=== PATIENT | male | born 1960 | race Caucasian/White ===

== ENCOUNTER 2016-12-16 12:31 | Inpatient (IN) | payer MEDICAID, OTHER ==
[2016-12-16 13:17] LABS: ABSOLUTE LYMPHOCYTES (AUTO) 0.2 10^3/uL (0.5-4.7); ABSOLUTE MONOCYTES (AUTO) 0.3 10^3/uL (0.1-1.4); ABSOLUTE NEUT (AUTO) 1.9 10^3/uL (1.7-8.2); BASOPHILS % (AUTO) 0.5 % (0-2); EOSINOPHILS % (AUTO) 0.4 % (0-6); HEMATOCRIT 29.3 % (37.9-51.0); HGB HCT DIFFERENCE 0.7; LYMPHOCYTES % (AUTO) 7.9 % (13-45); MEAN CORPUSCULAR HEMOGLOBIN 29.3 pg (27.0-33.4); MEAN CORPUSCULAR VOLUME 86 fl (80-97); MONOCYTES % (AUTO) 11.2 % (3-13); RED BLOOD COUNT 3.39 10^6/uL (4.35-5.55); RED CELL DISTRIBUTION WIDTH 14.9 % (11.5-14.0); WHITE BLOOD COUNT 2.4 10^3/uL (4.0-10.5)
[2016-12-16 13:39] LABS: ALANINE AMINOTRANSFERASE 48 U/L (21-72); ALBUMIN 3.8 g/dL (3.5-5.0); ALKALINE PHOSPHATASE 144 U/L (38-126); ANION GAP 16 (5-19); ASPARTATE AMINO TRANSFERASE 103 U/L (17-59); BILIRUBIN,DIRECT 0.9 mg/dL (0.0-0.4); BILIRUBIN,TOTAL 2.1 mg/dL (0.2-1.3); BLOOD UREA NITROGEN 17 mg/dL (7-20); CALCIUM 9.4 mg/dL (8.4-10.2); CARBON DIOXIDE 23 mmol/L (22-30); CHLORIDE 100 mmol/L (98-107); CREATININE RESULT 0.95 mg/dL (0.52-1.25); GLUCOSE 150 mg/dL (75-110); LIPASE 667.2 U/L (23-300); POTASSIUM 4.5 mmol/L (3.6-5.0); SODIUM 138.7 mmol/L (137-145); TOTAL PROTEIN 7.3 g/dL (6.3-8.2)
[2016-12-16 13:43] LABS: OVALOCYTES 2+; POIKILOCYTOSIS 2+; POLYCHROMASIA SLIGHT
[2016-12-16] MEDS ORDERED: PANTOPRAZOLE SODIUM 40 MG VIAL IV ONE (13:44)
[2016-12-16] MEDS ORDERED: OCTREOTIDE ACETATE INJ/PF 100 MCG/1 ML SDV IV ONE (13:45)
[2016-12-16] MEDS ORDERED: NORMAL SALINE 500 ML with OCTREOTIDE ACETATE 500 MCG IV PRN ×2 (13:45)
[2016-12-16] MEDS ORDERED: PANTOPRAZOLE SODIUM 40 MG VIAL IV PRN (13:49)
[2016-12-16 14:46] LABS: PROTHROMBIN TIME 16.7 SEC (11.4-15.4)
[2016-12-16] MEDS: NORMAL SALINE 1000 ML 1,000 ML IV PRN ×5 (14:46→17:58)
--- NOTE | 2016-12-16 15:22 | ER Document Report ---
ED General - General Chief Complaint: Abdominal Pain Stated Complaint: DIFFICULTY BREATHING Mode of Arrival: Ambulatory Information source: Patient Notes: 56-year-old male history of esophageal varices chronic alcoholic presents with complaints of vomiting blood with shortness of breath. Patient notes symptoms started yesterday. Patient has had multiple similar episodes in the past. Patient admits to dark stools - HPI Onset: Yesterday Onset/Duration: Persistent Quality of pain: No pain Severity: Mild Pain Level: Denies Associated symptoms: Nausea, Vomiting, Shortness of breath Exacerbated by: Denies Relieved by: Denies Similar symptoms previously: Yes Recently seen / treated by doctor: Yes - Related Data Allergies/Adverse Reactions: No Known Allergies Allergy (Unverified 12/16/16 12:45) Past Medical History - Social History Smoking Status: Current Some Day Smoker Cigarette use (# per day): No Chew tobacco use (# tins/day): No Smoking Education Provided: No Frequency of alcohol use: Heavy Family History: Reviewed & Not Pertinent Review of Systems - Review of Systems Notes: REVIEW OF SYSTEMS: CONSTITUTIONAL : Denies fever, chills, or sweats. Denies recent illness. EENT: Denies eye, ear, throat, or mouth pain or symptoms. Denies nasal or sinus congestion or discharge. Denies throat, tongue, or mouth swelling or difficulty swallowing. CARDIOVASCULAR: Denies chest pain. Denies palpitations or racing or irregular heart beat. Denies ankle edema. RESPIRATORY: Denies cough, cold, or chest congestion. Denies shortness of breath, difficulty breathing, or wheezing. GASTROINTESTINAL: Admits to nausea vomiting with blood GENITOURINARY: Denies difficulty urinating, painful urination, burning, frequency, blood in urine, or discharge. MUSCULOSKELETAL: Denies back or neck pain or stiffness. Denies joint pain or swelling. SKIN: Denies rash, lesions or sores. HEMATOLOGIC : Denies easy bruising or bleeding. LYMPHATIC: Denies swollen, enlarged glands. NEUROLOGICAL: Denies confusion or altered mental status. Denies passing out or loss of consciousness. Denies dizziness or lightheadedness. Denies headache. Denies weakness or paralysis or loss of use of either side. Denies problems with gait or speech. Denies sensory loss, numbness, or tingling. Denies seizures. PSYCHIATRIC: Denies anxiety or stress. Denies depression, suicidal ideation, or homicidal ideation. ALL OTHER SYSTEMS REVIEWED AND NEGATIVE. Dictation was performed using [employer] voice recognition software PHYSICAL EXAMINATION: GENERAL: Well-appearing, well-nourished and in no acute distress. Patient is hypotensive on my evaluation 80s over 40s HEAD: Atraumatic, normocephalic. EYES: Pupils equal round and reactive to light, extraocular movements intact, sclera anicteric, conjunctiva are normal. ENT: Nares patent, oropharynx clear without exudates. Moist mucous membranes. NECK: Normal range of motion, supple without lymphadenopathy LUNGS: Breath sounds clear to auscultation bilaterally and equal. No wheezes rales or rhonchi. HEART: Regular rate and rhythm without murmurs ABDOMEN: Soft, nontender, nondistended abdomen. No guarding, no rebound. No masses appreciated. Brown stool noted Musculoskeletal: Normal range of motion, no pitting or edema. No cyanosis. NEUROLOGICAL: Cranial nerves grossly intact. Normal speech, normal gait. Normal sensory, motor exams PSYCH: Normal mood, normal affect. SKIN: Warm, Dry, normal turgor, no rashes or lesions noted. Physical Exam - Vital signs Vitals: Temp Resp BP Pulse Ox 98.5 F 17 103/56 L 100 12/16/16 12:44 12/16/16 12:44 12/16/16 12:44 12/16/16 12:44 Course - Re-evaluation Re-evalutation: 12/16/16 15:21 Hemoccult was positive, given history of esophageal varices patient will be started on octreotide proton this and is otherwise stable after receiving 2 L boluses. Patient was initially very hypotensive and felt diaphoretic and weak Patient will be admitted to hospitalist service for further care, does not require transfusion at this time and notes significant improvement - Vital Signs Vital signs: Temp Pulse Resp BP Pulse Ox 98.5 F 17 128/57 H 94 12/16/16 12:44 12/16/16 15:01 12/16/16 15:01 12/16/16 15:01 - Laboratory Result Diagrams: 12/16/16 13:00 12/16/16 13:00 Laboratory results interpreted by me: 12/16/16 12/16/16 12/16/16 13:00 13:00 13:00 WBC 2.4 L RBC 3.39 L Hgb 10.0 L Hct 29.3 L RDW 14.9 H Plt Count 58 L Seg Neutrophils % 80.0 H Lymphocytes % 7.9 L Absolute Lymphocytes 0.2 L PT 16.7 H Glucose 150 H Total Bilirubin 2.1 H Direct Bilirubin 0.9 H AST 103 H Alkaline Phosphatase 144 H Lipase 667.2 H Critical Care Note - Critical Care Note Total time excluding time spent on procedures (mins): 41 Comments: 41 minutes of critical care time spent in direct contact evaluating and reevaluating the patient, treating symptoms, reviewing labs and studies and speaking with family and consultants excluding any procedures Discharge - Discharge Clinical Impression: esophageal variceal bleed, Shortness of breath Hypotension Qualifiers: Hypotension type: unspecified hypotension type Qualified Code(s): I95.9 - Hypotension, unspecified Condition: Stable Disposition: ADMITTED INPATIENT Admitting Provider: Hospitalist Unit Admitted: Telemetry
[2016-12-16 16:19] LABS: APPEARANCE,URINE SLIGHTLY-CLOUDY; BILIRUBIN,URINE NEGATIVE (NEGATIVE); GLUCOSE, URINE NEGATIVE (NEGATIVE); KETONES,URINE NEGATIVE (NEGATIVE); LEUKOCYTE ESTERASE,URINE NEGATIVE (NEGATIVE); NITRITE,URINE NEGATIVE (NEGATIVE); PROTEIN,URINE NEGATIVE (NEGATIVE); URINE SPECIFIC GRAVITY 1.006
[2016-12-16] MEDS ORDERED: ONDANSETRON HCL INJ/PF 4 MG/2 ML SDV IV PRN (17:02)
[2016-12-16] MEDS ORDERED: IPRATROPIUM/ALBUTEROL 0.5-2.5 MG/3 ML AMPUL NEB PRN (17:02)
[2016-12-16] MEDS ORDERED: NORMAL SALINE 250 ML IV PRN ×2 (17:09)
[2016-12-16] MEDS ORDERED: LORAZEPAM INJ 2 MG/1 ML VIAL IV PRN (17:12)
--- NOTE | 2016-12-16 17:34 | PDOC H&P ---
History of Present Illness Admission Date/PCP: 12/16/16 16:21 Patient complains of: Throwing up blood History of Present Illness: KARAN JONES is a 56 year old male with a long history of alcohol abuse who also has a known history of esophageal varices who presents with hematemesis. Patient reports that he was drinking beer this morning with his friends when he began to feel nauseous and had some crampy epigastric pain and then vomited up bright red blood. The patient felt dizzy and lightheaded but denied having any chest pain. He did have some shortness of breath associated with this. He presented emergency room and was started on octreotide drip as well as Protonix drip. His blood pressure initially was in the 80s that responded to a fluid bolus. Patient's hemoglobin is 10 currently. He denies any more abdominal pain at this time. He does drink at least 12 beers per day but denies ever having delirium tremens. Past Medical History Cardiac Medical History: Reports: Hypertension Pulmonary Medical History: Reports: Chronic Obstructive Pulmonary Disease (COPD) EENT Medical History: Reports: None Musculoskeltal Medical History: Reports: Gout Psychiatric Medical History: Reports: Alcohol Dependency, Depression Past Surgical History Past Surgical History: Reports: Orthopedic Surgery - On his fingers for gout. Social History Information Source: Patient Lives with: Alone Smoking Status: Current Some Day Smoker Frequency of Alcohol Use: Heavy Hx Recreational Drug Use: No Drugs: None Hx Prescription Drug Abuse: No - Advance Directive Resuscitation Status: Full Code Family History Family History: Father is 86 alive and healthy. Mother 77 alive and healthy. Parental Family History Reviewed: Yes Children Family History Reviewed: No Sibling(s) Family History Reviewed.: No Medication/Allergy Home Medications: Fentanyl [Duragesic 50 Mcg/Hr Transdermal Patch] 1 each TOP Q3D 12/16/16 Furosemide [Lasix] 20 mg PO DAILY 12/16/16 Hydrocodone/Acetaminophen [Cooks 10-325 mg Tablet] 1 tab PO BIDP PRN 12/16/16 Lisinopril [Prinivil 40 mg Tablet] 40 mg PO DAILY 12/16/16 Meloxicam [Mobic 15 mg Tablet] 15 mg PO DAILY 12/16/16 Pantoprazole Sodium [Protonix] 40 mg PO DAILY 12/16/16 Venlafaxine HCl [Venlafaxine HCl ER] 150 mg PO DAILY 12/16/16 Allergies/Adverse Reactions: No Known Allergies Allergy (Unverified 12/16/16 12:45) Review of Systems Constitutional: ABSENT: chills, fever(s), headache(s), weight gain, weight loss Eyes: ABSENT: visual disturbances Ears: ABSENT: hearing changes Cardiovascular: ABSENT: chest pain, dyspnea on exertion, edema, orthropnea, palpitations Respiratory: PRESENT: other - Complains of shortness of breath while he was having vomiting episodes. This has resolved. Gastrointestinal: PRESENT: abdominal pain, heartburn, hematemesis, nausea, vomiting. ABSENT: dysphagia, melena Genitourinary: ABSENT: dysuria, hematuria Musculoskeletal: PRESENT: other - Joint pains from gout. Integumentary: PRESENT: other - Erythematous lesions on his right leg. Neurological: ABSENT: abnormal gait, abnormal speech, confusion, dizziness, focal weakness, syncope Psychiatric: ABSENT: anxiety, depression Endocrine: ABSENT: cold intolerance, heat intolerance, polydipsia, polyuria Physical Exam Vital Signs: Temp Pulse Resp BP Pulse Ox 98.5 F 20 123/58 L 97 12/16/16 12:44 12/16/16 16:41 12/16/16 16:41 12/16/16 16:41 General appearance: PRESENT: no acute distress Head exam: PRESENT: atraumatic, normocephalic Eye exam: PRESENT: conjunctiva pink, scleral icterus Ear exam: PRESENT: normal external ear exam Mouth exam: PRESENT: moist, tongue midline Neck exam: ABSENT: carotid bruit, JVD, lymphadenopathy, thyromegaly Respiratory exam: PRESENT: clear to auscultation laine. ABSENT: rales, rhonchi, wheezes Cardiovascular exam: PRESENT: RRR. ABSENT: diastolic murmur, rubs, systolic murmur GI/Abdominal exam: PRESENT: normal bowel sounds, soft, tenderness - Mild epigastric tenderness.. ABSENT: distended, guarding, mass, organolmegaly, rebound Rectal exam: PRESENT: heme (+) stool - Per the emergency room physician Extremities exam: ABSENT: calf tenderness, clubbing, pedal edema Neurological exam: PRESENT: alert, awake, oriented to person, oriented to place , oriented to time, oriented to situation, CN II-XII grossly intact. ABSENT: motor sensory deficit Psychiatric exam: PRESENT: appropriate affect Skin exam: PRESENT: other - Erythematous area on the right anterior leg. Assessment & Plan - Diagnosis (1) Hypotension Qualifiers: Hypotension type: unspecified hypotension type Qualified Code(s): I95.9 - Hypotension, unspecified Is this a current diagnosis for this admission?: YesPlan: The patient had an episode of hypotension when he presented that responded to IV fluids. Patient reports that after he vomited he was very nauseous and may have been vasovagal however given the fact that he vomited up blood we will continue IV fluids and watch closely. (2) GI bleed Is this a current diagnosis for this admission?: YesPlan: The patient has a history of cirrhosis with esophageal varices. Patient also uses nonsteroidals and the chance of gastric ulcer is the more likely cause than esophageal varices however we will treat both with octreotide for the varices and Protonix for the possibility of a nonsteroidal induced gastric ulcer. Will follow serial hemoglobin and transfuse if need be. We'll consult GI for consideration of an EGD. (3) Cirrhosis Is this a current diagnosis for this admission?: YesPlan: Given the episode of hypotension we'll avoid beta blockers at this time. We'll give Ativan when necessary for preventing delirium tremens. (4) Hypertension Is this a current diagnosis for this admission?: YesPlan: We'll hold his lisinopril for now. (5) Gout Is this a current diagnosis for this admission?: YesPlan: Patient has chronic changes but no evidence for active gout flare at this time. (6) COPD (chronic obstructive pulmonary disease) Is this a current diagnosis for this admission?: YesPlan: We'll give nebulizers as needed. (7) Depression Is this a current diagnosis for this admission?: YesPlan: Continue with Effexor. - Time Time Spent: 50 to 70 Minutes - Inpatient Certification Medical Necessity: Need Close Monitoring Due to Risk of Patient Decompensation
[2016-12-16] MEDS: HYDROMORPHONE HCL INJ/PF 2 MG/ML AMPULE IV PRN (17:57)
[2016-12-16] MEDS ORDERED: FENTANYL 50 MCG/HR PATCH.TD72 TD ONE (19:00)
[2016-12-16 23:45] LABS: ABSOLUTE LYMPHOCYTES (AUTO) 0.2 10^3/uL (0.5-4.7); ABSOLUTE MONOCYTES (AUTO) 0.3 10^3/uL (0.1-1.4); ABSOLUTE NEUT (AUTO) 1.8 10^3/uL (1.7-8.2); BASOPHILS % (AUTO) 1.2 % (0-2); EOSINOPHILS % (AUTO) 0.9 % (0-6); HEMATOCRIT 29.4 % (37.9-51.0); HEMOGLOBIN 10.1 g/dL (13.5-17.0); HGB HCT DIFFERENCE 0.9; MEAN CORPUSCULAR HEMOGLOBIN 29.5 pg (27.0-33.4); MEAN CORPUSCULAR HGB CONC 34.5 g/dL (32.0-36.0); MEAN CORPUSCULAR VOLUME 86 fl (80-97); MONOCYTES % (AUTO) 11.6 % (3-13); RED BLOOD COUNT 3.43 10^6/uL (4.35-5.55); RED CELL DISTRIBUTION WIDTH 14.5 % (11.5-14.0); SEGMENTED NEUTROPHILS % (AUTO) 76.3 % (42-78); WHITE BLOOD COUNT 2.4 10^3/uL (4.0-10.5)
[2016-12-17] MEDS: HYDROMORPHONE HCL INJ/PF 2 MG/ML AMPULE IV PRN ×4 (00:06→20:43)
[2016-12-17] MEDS: NORMAL SALINE 500 ML with OCTREOTIDE ACETATE 500 MCG IV PRN ×6 (01:23→20:36)
[2016-12-17] MEDS ORDERED: PANTOPRAZOLE SODIUM 40 MG VIAL IV ONE (02:45)
[2016-12-17] MEDS: DEXTROSE 5%-NORMAL SALINE 1,000 ML IV PRN ×2 (02:54→12:31)
[2016-12-17] MEDS: NORMAL SALINE 100 ML with PANTOPRAZOLE SODIUM 80 MG IV PRN ×4 (03:12→15:25)
[2016-12-17 04:52] LABS: ALANINE AMINOTRANSFERASE 50 U/L (21-72); ALBUMIN 3.2 g/dL (3.5-5.0); ALKALINE PHOSPHATASE 119 U/L (38-126); ANION GAP 11 (5-19); ASPARTATE AMINO TRANSFERASE 86 U/L (17-59); BILIRUBIN,DIRECT 1.1 mg/dL (0.0-0.4); BILIRUBIN,TOTAL 3.1 mg/dL (0.2-1.3); BLOOD UREA NITROGEN 25 mg/dL (7-20); CALCIUM 8.7 mg/dL (8.4-10.2); CARBON DIOXIDE 22 mmol/L (22-30); CHLORIDE 107 mmol/L (98-107); CREATININE RESULT 0.83 mg/dL (0.52-1.25); GLUCOSE 135 mg/dL (75-110); MAGNESIUM 1.6 mg/dL (1.6-2.3); POTASSIUM 4.4 mmol/L (3.6-5.0); SODIUM 139.8 mmol/L (137-145); TOTAL PROTEIN 6.5 g/dL (6.3-8.2)
[2016-12-17 05:10] LABS: ABSOLUTE LYMPHOCYTES (AUTO) 0.3 10^3/uL (0.5-4.7); ABSOLUTE MONOCYTES (AUTO) 0.3 10^3/uL (0.1-1.4); ABSOLUTE NEUT (AUTO) 1.7 10^3/uL (1.7-8.2); BASOPHILS % (AUTO) 0.7 % (0-2); EOSINOPHILS % (AUTO) 1.5 % (0-6); HEMOGLOBIN 10.8 g/dL (13.5-17.0); HGB HCT DIFFERENCE 1.4; LYMPHOCYTES % (AUTO) 12.9 % (13-45); MEAN CORPUSCULAR HEMOGLOBIN 29.6 pg (27.0-33.4); MEAN CORPUSCULAR HGB CONC 34.8 g/dL (32.0-36.0); MEAN CORPUSCULAR VOLUME 85 fl (80-97); MONOCYTES % (AUTO) 12.8 % (3-13); RED BLOOD COUNT 3.65 10^6/uL (4.35-5.55); RED CELL DISTRIBUTION WIDTH 14.5 % (11.5-14.0); SEGMENTED NEUTROPHILS % (AUTO) 72.1 % (42-78); WHITE BLOOD COUNT 2.4 10^3/uL (4.0-10.5)
[2016-12-17] MEDS ORDERED: NORMAL SALINE 1000 ML 1,000 ML with THIAMINE HCL 100 MG, MVI, ADULT NO.1 WITH VIT K 10 ... IV PRN ×4 (09:34)
[2016-12-17] MEDS ORDERED: NORMAL SALINE 1000 ML 1,000 ML IV PRN (09:35)
--- NOTE | 2016-12-17 09:43 | PDOC PROGRESS REPORT ---
Subjective Progress Note for:: 12/17/16 Subjective:: Patient denies any vomiting anymore. Abdominal pain resolved. No diarrhea. No melena or hematochezia. History of liver cirrhosis in the past as well as esophageal viruses. Drinks heavy alcohol on a daily basis but never had withdrawal symptoms. No chills or fever. No chest pain or shortness of breath. Physical Exam Vital Signs: Temp Pulse Resp BP Pulse Ox 97.9 F 88 16 147/71 H 97 12/17/16 02:10 12/17/16 08:43 12/17/16 08:43 12/17/16 07:18 12/17/16 08:43 Intake & Output 12/16/16 12/17/16 12/18/16 06:59 06:59 06:59 Intake Total 900 Output Total 420 Balance 480 Weight 98.2 kg General appearance: PRESENT: no acute distress, cooperative Head exam: PRESENT: normocephalic Eye exam: PRESENT: EOMI Mouth exam: PRESENT: moist, neck supple Neck exam: ABSENT: JVD Respiratory exam: PRESENT: clear to auscultation laine. ABSENT: rhonchi, wheezes Cardiovascular exam: PRESENT: RRR. ABSENT: gallop GI/Abdominal exam: PRESENT: distended, hyperactive bowel sounds, soft Extremities exam: PRESENT: other - Trace lower extremity edema Neurological exam: PRESENT: alert, awake, oriented to person, oriented to place , oriented to time, oriented to situation, other - No tremors noted Skin exam: PRESENT: dry, warm. ABSENT: cyanosis Results Laboratory Results: 12/17/16 03:53 12/17/16 03:53 12/16/16 12/17/16 12/17/16 23:22 03:53 03:53 WBC 2.4 L 2.4 L RBC 3.43 L 3.65 L Hgb 10.1 L 10.8 L Hct 29.4 L 31.0 L MCV 86 85 MCH 29.5 29.6 MCHC 34.5 34.8 RDW 14.5 H 14.5 H Plt Count 47 L 50 L Seg Neutrophils % 76.3 72.1 Lymphocytes % 10.0 L 12.9 L Monocytes % 11.6 12.8 Eosinophils % 0.9 1.5 Basophils % 1.2 0.7 Absolute Neutrophils 1.8 1.7 Absolute Lymphocytes 0.2 L 0.3 L Absolute Monocytes 0.3 0.3 Absolute Eosinophils 0.0 0.0 Absolute Basophils 0.0 0.0 Sodium 139.8 Potassium 4.4 Chloride 107 Carbon Dioxide 22 Anion Gap 11 BUN 25 H Creatinine 0.83 Est GFR ( Amer) > 60 Est GFR (Non-Af Amer) > 60 Glucose 135 H Calcium 8.7 Magnesium 1.6 Total Bilirubin 3.1 H AST 86 H ALT 50 Alkaline Phosphatase 119 Total Protein 6.5 Albumin 3.2 L Assessment & Plan - Diagnosis (1) GI bleed Qualifiers: GI bleed type/associated pathology: unspecified gastrointestinal hemorrhage type Qualified Code(s): K92.2 - Gastrointestinal hemorrhage, unspecified Is this a current diagnosis for this admission?: Yes (2) Pancytopenia Is this a current diagnosis for this admission?: Yes (3) Coagulopathy Is this a current diagnosis for this admission?: Yes (4) Alcoholic pancreatitis Qualifiers: Chronicity: acute Acute pancreatitis complication: unspecified Qualified Code(s): K85.20 - Alcohol induced acute pancreatitis without necrosis or infection Is this a current diagnosis for this admission?: Yes (5) COPD (chronic obstructive pulmonary disease) Qualifiers: COPD type: unspecified COPD Qualified Code(s): J44.9 - Chronic obstructive pulmonary disease, unspecified Is this a current diagnosis for this admission?: Yes (6) Cirrhosis Qualifiers: Hepatic cirrhosis type: alcoholic cirrhosis Ascites presence: without ascites Qualified Code(s): K70.30 - Alcoholic cirrhosis of liver without ascites Is this a current diagnosis for this admission?: Yes (7) Depression Qualifiers: Depression Type: unspecified Qualified Code(s): F32.9 - Major depressive disorder, single episode, unspecified Is this a current diagnosis for this admission?: Yes (8) Gout Qualifiers: Gout site: unspecified site Gout etiology: unspecified cause Chronicity: unspecified Qualified Code(s): M10.9 - Gout, unspecified Is this a current diagnosis for this admission?: Yes (9) Hypertension Qualifiers: Hypertension type: essential hypertension Qualified Code(s): I10 - Essential (primary) hypertension Is this a current diagnosis for this admission?: Yes (10) Alcohol abuse Is this a current diagnosis for this admission?: Yes - Time Time Spent with patient: 25-34 minutes - Plan Summary Plan Summary: We will keep patient nothing by mouth. Possible endoscopy later on today. Monitor hematocrit, and platelet count. Recheck lipase level and amylase. Continue IV hydration. Continue intravenous proton pump inhibitor/octreotide. Begin thiamine and folic acid and multivitamin IV and monitor for withdrawal. Continue supportive care.
[2016-12-17] MEDS: VENLAFAXINE HCL 75 MG CAP.SR.24H PO SCH (11:07)
[2016-12-17] MEDS ORDERED: NALOXONE HCL INJ/PF 0.4 MG/1 ML SDV ONE (14:56)
[2016-12-17] MEDS ORDERED: PROMETHAZINE HCL INJ 25 MG/1 ML VIAL ONE (14:56)
[2016-12-17] MEDS ORDERED: FLUMAZENIL INJ 0.5 MG/5 ML VIAL IV ONE (14:57)
[2016-12-17] MEDS ORDERED: EPINEPHRINE INJ 1 MG/10 ML DISP.SYRIN ONE (14:57)
[2016-12-17] MEDS ORDERED: GLUCAGON,HUMAN RECOMB 1 MG INJ ONE (14:57)
[2016-12-17] MEDS ORDERED: FENTANYL CITRATE INJ/PF 100 MCG/2 ML AMPUL ONE (14:57)
[2016-12-17] MEDS: MIDAZOLAM 2 MG/2 ML INJ ONE ×4 (19:10→19:29)
--- NOTE | 2016-12-17 19:37 | PDOC CONSULTATION ---
Consultation Consult Date: 12/16/16 History of Present Illness Admission Date/PCP: 12/16/16 17:03 History of Present Illness: This is a 56-year-old patient admitted to the emergency room last night with hematemesis. He had two episodes of hematemesis earlier in the day when he truly one third of a cup. He has not thrown off for at least 20 hours. He was started on IV Sandostatin in the emergency room. He has a history of varices and has bled three or four times over the years. The last time was about two years ago. He continues to abuse alcohol and has not been seen any csr. He drinks at least 12 pack beer every day. On admission his hemoglobin was 10 and after one units it was still 10. His platelet count was 58 on admission with a white count of 2.4 Past Medical History Cardiac Medical History: Reports: Hypertension Pulmonary Medical History: Reports: Chronic Obstructive Pulmonary Disease (COPD) EENT Medical History: Reports: None Neurological Medical History: Denies: Seizures Musculoskeltal Medical History: Reports: Gout Psychiatric Medical History: Reports: Alcohol Dependency, Depression Past Surgical History Past Surgical History: Reports: Orthopedic Surgery - On his fingers for gout. Social History Lives with: Alone Smoking Status: Current Some Day Smoker Frequency of Alcohol Use: Heavy Hx Recreational Drug Use: No Drugs: None Hx Prescription Drug Abuse: No - Advance Directive Resuscitation Status: Full Code Family History Family History: Reviewed & Not Pertinent Parental Family History Reviewed: No Children Family History Reviewed: NA Sibling(s) Family History Reviewed.: NA Medication/Allergy Home Medications: Fentanyl [Duragesic 50 Mcg/Hr Transdermal Patch] 1 each TOP Q3D 12/16/16 Furosemide [Lasix] 20 mg PO DAILY 12/16/16 Hydrocodone/Acetaminophen [[place] 10-325 mg Tablet] 1 tab PO BIDP PRN 12/16/16 Lisinopril [Prinivil 40 mg Tablet] 40 mg PO DAILY 12/16/16 Meloxicam [Mobic 15 mg Tablet] 15 mg PO DAILY 12/16/16 Pantoprazole Sodium [Protonix] 40 mg PO DAILY 12/16/16 Venlafaxine HCl [Venlafaxine HCl ER] 150 mg PO DAILY 12/16/16 Allergies/Adverse Reactions: No Known Allergies Allergy (Unverified 12/16/16 12:45) Review of Systems All systems: reviewed and no additional remarkable complaints except as stated Physical Exam Vital Signs: Temp Pulse Resp BP Pulse Ox 98.0 F 82 20 148/65 H 96 12/17/16 17:22 12/17/16 19:20 12/17/16 19:20 12/17/16 19:20 12/17/16 19:20 Intake & Output 12/16/16 12/17/16 12/18/16 06:59 06:59 06:59 Intake Total 900 1500 Output Total 420 1250 Balance 480 250 Weight 98.2 kg Exam: General: Patient is alert and looks well. HEENT: He is pale and also jaundiced. PERRLA. Oropharynx normal Respiratory: No chest deformity. No respiratory distress. Chest wall palpitation was unremarkable. Breath sounds were normal Cardiovascular: Heart sounds 1 and 2 normal with no murmurs. Abdominal: Distended but no significant ascites. Soft and nontender. Liver and spleen not palpable. No ascites demonstrated. Bowel sounds active. Rectal examination was deferred. Extremities: Mild pedal edema Neurological: Alert and oriented x4. Grossly nonfocal. Normal speech Skin: No significant rash Psychological: Normal affect Results Laboratory Results: 12/17/16 03:53 12/17/16 03:53 12/16/16 12/17/16 12/17/16 23:22 03:53 03:53 WBC 2.4 L 2.4 L RBC 3.43 L 3.65 L Hgb 10.1 L 10.8 L Hct 29.4 L 31.0 L MCV 86 85 MCH 29.5 29.6 MCHC 34.5 34.8 RDW 14.5 H 14.5 H Plt Count 47 L 50 L Seg Neutrophils % 76.3 72.1 Lymphocytes % 10.0 L 12.9 L Monocytes % 11.6 12.8 Eosinophils % 0.9 1.5 Basophils % 1.2 0.7 Absolute Neutrophils 1.8 1.7 Absolute Lymphocytes 0.2 L 0.3 L Absolute Monocytes 0.3 0.3 Absolute Eosinophils 0.0 0.0 Absolute Basophils 0.0 0.0 Sodium 139.8 Potassium 4.4 Chloride 107 Carbon Dioxide 22 Anion Gap 11 BUN 25 H Creatinine 0.83 Est GFR ( Amer) > 60 Est GFR (Non-Af Amer) > 60 Glucose 135 H Calcium 8.7 Magnesium 1.6 Total Bilirubin 3.1 H AST 86 H ALT 50 Alkaline Phosphatase 119 Total Protein 6.5 Albumin 3.2 L Assessment & Plan - Diagnosis (1) Esophageal varices in alcoholic cirrhosis Is this a current diagnosis for this admission?: YesPlan: He probably bled from his varices though the amount of blood was small and his hemoglobin is stable. He will undergo an EGD with variceal rubberbanding if he has significant varices. Ulcers will also be ruled out. (2) Alcohol abuse Is this a current diagnosis for this admission?: Yes (3) Cirrhosis Qualifiers: Hepatic cirrhosis type: alcoholic cirrhosis Ascites presence: without ascites Qualified Code(s): K70.30 - Alcoholic cirrhosis of liver without ascites Is this a current diagnosis for this admission?: YesPlan: He continues to abuse alcohol and not follow with a csr. (4) Coagulopathy Is this a current diagnosis for this admission?: Yes (5) GI bleed Qualifiers: GI bleed type/associated pathology: unspecified gastrointestinal hemorrhage type Qualified Code(s): K92.2 - Gastrointestinal hemorrhage, unspecified Is this a current diagnosis for this admission?: Yes
--- NOTE | 2016-12-17 19:39 | Operative Report ---
Operative Report DATE OF SURGERY: 12/17/16 Operative Report: Pre-op diagnosis: History of cirrhosis and esophageal varices. Admitted with mild hematemesis Post-op diagnosis: Small esophageal varix Surgery: Esophagogastroduodenoscopy Medications: Versed 5mg Fentanyl 100mcg IV push Tissue removed: None Procedure: After informed consent obtained from patient, the throat was sprayed with Hurricane and conscious sedation was achieved. The upper endoscope was inserted into the esophagus under direct vision and advanced into the stomach. The duodenum was entered and examined to the second part. Endoscope was then slowly pulled out of the patient as the mucosa was examined into details. Patient tolerated procedure well. Findings Esophagus: There was a short column of moderate size varix with areas of scarring from previous banding. There was no evidence for recent bleeding. Antrum: Normal Body: Normal Fundus: Normal Duodenum first part: Normal Duodenum second part: Normal Plan: Await pathology. Continual Sandostatin until tomorrow and start patient on nadolol OPERATION: .
[2016-12-18] MEDS: HYDROMORPHONE HCL INJ/PF 2 MG/ML AMPULE IV PRN ×3 (00:46→10:27)
[2016-12-18] MEDS: NORMAL SALINE 100 ML with PANTOPRAZOLE SODIUM 80 MG IV PRN ×2 (03:40)
[2016-12-18 04:51] LABS: HEMATOCRIT 31.2 % (37.9-51.0); HEMOGLOBIN 10.7 g/dL (13.5-17.0); MEAN CORPUSCULAR HEMOGLOBIN 29.5 pg (27.0-33.4); MEAN CORPUSCULAR HGB CONC 34.4 g/dL (32.0-36.0); MEAN CORPUSCULAR VOLUME 86 fl (80-97); RED BLOOD COUNT 3.64 10^6/uL (4.35-5.55); RED CELL DISTRIBUTION WIDTH 14.9 % (11.5-14.0); WHITE BLOOD COUNT 1.7 10^3/uL (4.0-10.5)
[2016-12-18 05:09] LABS: AMYLASE 36 U/L (30-110); ANION GAP 11 (5-19); BLOOD UREA NITROGEN 17 mg/dL (7-20); CALCIUM 8.4 mg/dL (8.4-10.2); CARBON DIOXIDE 22 mmol/L (22-30); CHLORIDE 106 mmol/L (98-107); CREATININE RESULT 0.83 mg/dL (0.52-1.25); GLUCOSE 121 mg/dL (75-110); LIPASE 395.1 U/L (23-300); POTASSIUM 4.3 mmol/L (3.6-5.0); SODIUM 139.4 mmol/L (137-145)
[2016-12-18 05:20] LABS: HGB HCT DIFFERENCE 0.9
[2016-12-18] MEDS: DEXTROSE 5%-NORMAL SALINE 1,000 ML IV PRN (06:05)
[2016-12-18] MEDS: NORMAL SALINE 500 ML with OCTREOTIDE ACETATE 500 MCG IV PRN ×2 (08:03)
[2016-12-18] MEDS: VENLAFAXINE HCL 75 MG CAP.SR.24H PO SCH (09:48)
[2016-12-18] MEDS ORDERED: NADOLOL 40 MG TABLET PO SCH (10:00)
--- NOTE | 2016-12-18 11:43 | PDOC DISCHARGE SUMMARY ---
General - Admit/Disc Date/PCP Admission Date/Primary Care Provider: 12/16/16 17:03 Discharge Date: 12/18/16 - Discharge Diagnosis (1) GI bleed Is this a current diagnosis for this admission?: Yes (2) Pancytopenia Is this a current diagnosis for this admission?: Yes (3) Coagulopathy Is this a current diagnosis for this admission?: Yes (4) Alcoholic pancreatitis Is this a current diagnosis for this admission?: Yes (5) COPD (chronic obstructive pulmonary disease) Is this a current diagnosis for this admission?: Yes (6) Cirrhosis Is this a current diagnosis for this admission?: Yes (7) Depression Is this a current diagnosis for this admission?: Yes (8) Gout Is this a current diagnosis for this admission?: Yes (9) Hypertension Is this a current diagnosis for this admission?: Yes (10) Alcohol abuse Is this a current diagnosis for this admission?: Yes (11) Esophageal varices in alcoholic cirrhosis Is this a current diagnosis for this admission?: Yes - Additional Information Resuscitation Status: Full Code Discharge Diet: Other (Comments) - low-salt Discharge Activity: Activity As Tolerated, Balance Activity w/Rest Home Medications: Fentanyl [Duragesic 50 Mcg/Hr Transdermal Patch] 1 each TOP Q3D 12/16/16 Furosemide [Lasix] 20 mg PO DAILY 12/16/16 Hydrocodone/Acetaminophen [[place] 10-325 mg Tablet] 1 tab PO BIDP PRN 12/16/16 Lisinopril [Prinivil 40 mg Tablet] 40 mg PO DAILY 12/16/16 Pantoprazole Sodium [Protonix] 40 mg PO DAILY 12/16/16 Venlafaxine HCl [Venlafaxine HCl ER] 150 mg PO DAILY 12/16/16 Nadolol [Corgard 40 mg Tablet] 20 mg PO DAILY #30 tablet 12/18/16 Spironolactone [Aldactone 25 mg Tablet] 50 mg PO DAILY #60 tablet 12/18/16 Additional Information: 1. Stop alcohol 2. Basic metabolic is panel as outpatient with primary care physician 3. Avoid [id number] nonsteroidal anti-inflammatory medications. History of Present Illness Patient complains of: Vomiting blood History of Present Illness: KARAN JONES is a 56 year old male, with history of liver cirrhosis, esophageal varices, presents to the hospital with hematemesis, with associated abdominal pain in the epigastric area, lightheadedness, and dizziness. The patient was started on intravenous octreotide and intravenous proton pump inhibitor and was referred for admission. For details please refer to history and physical examination performed by the admitting physician. Hospital Course Hospital Course: The patient was admitted to telemetry. No noted hypotension. Serial hemoglobin and hematocrit was monitored which initially dropped but eventually stabilized. Patient was hydrated with intravenous fluids and a proton pump inhibitor and octreotide intravenously were continued. Gastroenterology was consulted. The patient's GI bleeding resolved spontaneously. Upper endoscopy eventually performed showing no active bleeding sites. There was a small esophageal varices. Gastroenterology recommended starting beta ellis, and continuing the octreotide drip overnight after the procedure. The patient improved. Patient did have chronic pain syndrome where he was continued on his fentanyl patch, and as needed Dilaudid was given for pain. Blood pressure has been stable. Patient's abdominal pain resolved. Also noted loss of mildly elevated lipase probably from mild pancreatitis and on monitoring it has trended down. The patient improved. Diet was started and the patient tolerated it well. The rest of the hospital stay was unremarkable. Patient was cleared by gastroenterology to be discharged. Physical Exam Vital Signs: Temp Pulse Resp BP Pulse Ox 99.1 F 82 17 160/73 H 97 12/18/16 07:21 12/18/16 07:21 12/18/16 07:21 12/18/16 07:21 12/18/16 07:21 Intake & Output 12/17/16 12/18/16 12/19/16 06:59 06:59 06:59 Intake Total 900 3500 Output Total 420 2790 Balance 480 710 Weight 98.2 kg 99.3 kg General appearance: PRESENT: no acute distress, cooperative, obese Head exam: PRESENT: normocephalic Eye exam: PRESENT: EOMI. ABSENT: scleral icterus Mouth exam: PRESENT: moist, neck supple Neck exam: ABSENT: JVD Respiratory exam: PRESENT: clear to auscultation laine. ABSENT: rhonchi, wheezes Cardiovascular exam: PRESENT: RRR. ABSENT: gallop GI/Abdominal exam: PRESENT: distended, hypoactive bowel sounds, soft. ABSENT: tenderness Extremities exam: PRESENT: +1 edema Neurological exam: PRESENT: alert, awake, oriented to person, oriented to place , oriented to time, oriented to situation Skin exam: PRESENT: dry, warm. ABSENT: cyanosis Results Laboratory Results: 12/18/16 04:14 12/18/16 04:14 12/18/16 12/18/16 04:14 04:14 WBC 1.7 L RBC 3.64 L Hgb 10.7 L Hct 31.2 L MCV 86 MCH 29.5 MCHC 34.4 RDW 14.9 H Plt Count 48 L Sodium 139.4 Potassium 4.3 Chloride 106 Carbon Dioxide 22 Anion Gap 11 BUN 17 Creatinine 0.83 Est GFR ( Amer) > 60 Est GFR (Non-Af Amer) > 60 Glucose 121 H Calcium 8.4 Amylase 36 Lipase 395.1 H Qualifiers [place] BEING DISCHARGED WITH ANY OF THE FOLLOWING DIAGNOSIS?: No Plan Discharge Plan: Follow-up with primary care physician in one week. Follow-up with gastroenterology, Dr. Patel in 1-2 weeks. Time Spent: Less than 30 Minutes
[2016-12-18 12:56] VITALS: BP 170/78
[2016-12-18] MEDS ORDERED: LISINOPRIL 10 MG TABLET PO ONE (14:00)
[2016-12-19] MEDS ORDERED: FENTANYL 50 MCG/HR PATCH.TD72 TOP SCH (10:00)
== END 2016-12-18 14:10 | disposition home or self-care (01) | DRG 378 ==
LOC: ER 12:31 → UNDOADMIN 16:21 → EH 16:21 → 5 20:51
PROVIDERS: ADMIT Internal Medicine; ATTEND Internal Medicine
PROC: 30233N1 Transfusion of Nonautologous Red Blood Cells into Peripheral Vein, Percutaneous Approach (ICD-10-PCS; 2016-12-16)
PROC: 0DJ08ZZ Inspection of Upper Intestinal Tract, Via Natural or Artificial Opening Endoscopic (ICD-10-PCS; principal; 2016-12-17 18:30)
DX: K92.0 Hematemesis (principal); D61.818 Other pancytopenia; K86.0 Alcohol-induced chronic pancreatitis; D68.9 Coagulation defect, unspecified; K70.30 Alcoholic cirrhosis of liver without ascites; I85.10 Secondary esophageal varices without bleeding; J44.9 Chronic obstructive pulmonary disease, unspecified; G89.4 Chronic pain syndrome; F10.10 Alcohol abuse, uncomplicated; F32.9 Major depressive disorder, single episode, unspecified; M10.9 Gout, unspecified; I10 Essential (primary) hypertension; F17.210 Nicotine dependence, cigarettes, uncomplicated
CPT/HCPCS: 36415; 36430; 43235; 80048; 80053; 80307; 81001; 82150; 82272; 83690; 83735; 85025; 85027; 85610; 86850; 86900; 86901; 86920; 96361; 96365; 96375; 96376; 99285; J0171; J1170; J1610; J2250; J2310; J2354; J2550; J3010; J3411; J3490; J7030; J7040; P9016; S0164